=== PATIENT | male | born 1995 | race Caucasian/White ===

== ENCOUNTER → 2017-01-26 | Outpatient (CLI) | payer BC ==
[~2017-01-26] VITALS: Ht 193 cm; Wt 81.8 kg
[2017-01-26 14:38] VITALS: BP 100/67; PULSE 68; Ht 193 cm; Wt 81.8 kg
== END | disposition home or self-care (01) ==
LOC: C.NEUR 14:20
PROVIDERS: ATTEND Physician Assistant Medical
DX: R53.83 Other fatigue (principal); R41.3 Other amnesia; R68.89 Other general symptoms and signs; R41.840 Attention and concentration deficit

== ENCOUNTER 2017-05-01 01:18 | Emergency (ER) | payer BC, OTHER ==
[2017-05-01 01:26] VITALS: O2SAT 99
[2017-05-01] MEDS ORDERED: ONDANSETRON INJ 2 MG/ML 2 ML VIAL IV STA (01:57)
[2017-05-01 02:17] LABS: BLOOD UREA NITROGEN 10 mg/dl (7-18); BUN/CREATININE RATIO 12.6 (10-20); CARBON DIOXIDE 25 mmol/L (21-32); CREATININE 0.78 mg/dl (0.60-1.40); GLUCOSE 95 mg/dl (70-99)
--- NOTE | 2017-05-01 02:23 | EMERGENCY ROOM VISIT NOTE ---
History Report prepared by Jessicaibmarkel: Sofia Guardado Under the Supervision of: Dr. Jan Aranda D.O. First contact with patient: 01:40 Chief Complaint: ALCOHOL OVERDOSE Stated Complaint: ALCOHOL OVERDOSE Nursing Triage Summary: Patient was found by security in the [facility] on campus slumped over his computer. Patient was unresponsive for staff. EMS stated that patient was not very responsive for them, unable to obtain much information. Patient to ED with large backpack, and garbage bag of belongings. 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 The patient presents to the ED by EMS. He was found slumped over in the Hub. He has been unresponsive. He is vomiting upon arrival. There are no signs of trauma. The history is limited due to the patient's intoxication. Source of History: nursing staff History Limited By: intoxication Onset: OUTSOLE TACKER Position: other (global) Quality: other (alcohol intoxication) Timing: other (persistent) Associated Symptoms: + vomiting Note: Pt is unresponsive. Review of Systems Limited due to the patient's intoxication. Past Medical & Surgical Medical Problems: (1) No significant past medical history Surgical Problems: (1) No history of previous surgery Family History Unable to obtain due to the patient's intoxication. Social History Smoking Status: Unknown if Ever Smoked Alcohol Use: occasionally Marital Status: single Housing Status: lives with family Occupation Status: [employer] student Current/Historical Medications Unable to Obtain Active Prescriptions or Reported Meds Allergies Coded Allergies: POLLEN (Unverified Allergy, Mild, ITCHY EYES, 10/29/15) Physical Exam Vital Signs Date Time Temp Pulse Resp B/P (MAP) Pulse Ox O2 Delivery O2 Flow Rate FiO2 05/01/17 05:24 72 05/01/17 04:30 108/57 05/01/17 04:18 82 16 100 05/01/17 04:00 105/57 05/01/17 03:48 76 17 100 05/01/17 03:39 114/63 05/01/17 03:18 74 17 100 05/01/17 03:00 102/68 05/01/17 02:48 73 16 05/01/17 02:30 103/68 05/01/17 02:18 70 17 05/01/17 02:01 130/95 05/01/17 01:48 66 16 98 05/01/17 01:30 128/78 05/01/17 01:29 74 05/01/17 01:26 99 Room Air 05/01/17 01:26 87 18 128/78 99 Room Air 05/01/17 01:23 119/71 Physical Exam GENERAL: Unresponsive, actively vomiting in the room. HENT: Normocephalic, atraumatic. Oropharynx unremarkable. EYES: Normal conjunctiva. Sclera non-icteric. NECK: Supple. No nuchal rigidity. FROM. No JVD. RESPIRATORY: Clear to auscultation. CARDIAC: Regular rate, normal rhythm. Extremities warm and well perfused. Pulses equal. ABDOMEN: Soft, non-distended. No tenderness to palpation. No rebound or guarding. No masses. RECTAL: Deferred. MUSCULOSKELETAL: Chest examination reveals no tenderness. The back is symmetrical on inspection without obvious abnormality. There is no CVA tenderness to palpation. No joint edema. LOWER EXTREMITIES: Calves are equal size bilaterally and non-tender. No edema. No discoloration. NEURO: Unresponsive. Responds to painful stimuli. SKIN: No rash or jaundice noted. Medical Decision & Procedures Laboratory Results 05/01/17 01:27 Test 05/01/17 01:27 Anion Gap 10.0 mmol/L (3-11) Estimated GFR () 148.5 Estimated GFR (Non- 128.1 BUN/Creatinine Ratio 12.6 (10-20) Calcium Level 8.0 mg/dl (8.5-10.1) Ethyl Alcohol mg/dL 197.0 mg/dl (0-3) Laboratory results reviewed by me Medications Administered Medications (Trade) Dose Ordered Sig/Kyle Route Start Time Stop Time Status Last Admin Dose Admin Ondansetron HCl (Zofran Inj) 4 mg NOW STAT IV 05/01/17 01:57 05/01/17 01:58 DC 05/01/17 02:03 4 MG ED Course 0149: The patient was evaluated in room B12B. A complete history and physical exam was performed. 0157: Zofran Inj 4 mg IV. 0610: I reevaluated the patient. Discussed results and discharge instructions: He verbalized understanding and agreement. The patient is ready for discharge. Medical Decision Differential diagnosis: Etiologies such as alcohol intoxication, toxicologic, infection, hypoglycemia, electrolyte abnormalities, cardiac sources, intracerebral event, neurologic, as well as others were entertained. Repeat examination of the patient at 6:12 AM the patient is in no distress. There is no signs of trauma he is alert GCS of 15 no active vomiting Medication Reconcilliation Current Medication List: was personally reviewed by me Blood Pressure Screening Patient's blood pressure: Normal blood pressure Blood pressure disposition: Did not require urgent referral Impression Primary Impression: Alcoholic intoxication Scribe Attestation The scribe's documentation has been prepared under my direction and personally reviewed by me in its entirety. I confirm that the note above accurately reflects all work, treatment, procedures, and medical decision making performed by me. Departure Information Dispostion Home / Self-Care Prescriptions Unable to Obtain Active Prescriptions or Reported Meds Referrals No Doctor, Assigned (PCP) Patient Instructions Alcohol Drug Use Suspect Ch, My [facility] Additional Instructions Follow-up with student health this week return for worsening symptoms drink plenty of fluids take Tylenol
[2017-05-01 03:12] LABS: CHLORIDE 102 mmol/L (98-107); POTASSIUM 3.3 mmol/L (3.5-5.1); SODIUM 137 mmol/L (136-145)
[2017-05-01 06:46] VITALS: BP 114/59; PULSE 78; O2SAT 100
== END 2017-05-01 06:40 | disposition home or self-care (01) ==
LOC: EDBD 01:18 → C.EDB 01:23
DX: F10.129 Alcohol abuse with intoxication, unspecified (principal); Y90.6 Blood alcohol level of 120-199 mg/100 ml; Z91.09 Other allergy status, other than to drugs and biological substances